=== PATIENT | female | born 1970 | race Caucasian/White ===

== ENCOUNTER 2017-01-06 03:53 | Emergency (ER) | payer OTHER ==
--- NOTE | 2017-01-06 07:18 | DIAGNOSTIC IMAGING REPORT ---
PROCEDURE: ABDOMEN/PELVIS WITH CONTRAST CLINICAL INDICATION: ABDOMINAL PAIN TECHNIQUE: 125 ml of Isovue 300 were injected intravenously and axial images were obtained of the abdomen and pelvis with sagittal and coronal reformations. COMPARISON: 05/26/2016 FINDINGS: ABDOMEN: Clear lung bases. Normal sized heart. No hiatal hernia. Surgically absent gallbladder. The liver, adrenal glands, kidneys, pancreas and spleen are normal. The abdominal aorta is normal in its course and caliber. Mild calcified and noncalcified atherosclerosis. There are no suspicious calcifications, retroperitoneal adenopathy or masses. The stomach, upper bowel loops, and mesentery are normal. Intact anterior abdominal wall. No free fluid or inflammation. PELVIS: Surgically absent uterus. There is a peripherally hyperemic 1.8 cm cystic structure in the left adnexa. The right ovary was not identified. There is a small amount of fluid in the pelvis. The appendix was not identified but no right lower quadrant inflammation. The pelvic small bowel loops are normal. Normal amount of stool in the colon and rectum. The uterus, ovaries, urinary bladder, and pelvic vessels are normal. No adenopathy, free fluid, or pelvic mass. Degenerative facet disease on the right at the L5-S1 level. IMPRESSION: 1. Findings suggest ruptured left ovarian corpus luteum. 2. Post cholecystectomy and hysterectomy. 3. Nonvisualization of the appendix but no evidence of acute appendicitis. 4. Findings called to the emergency room. All CT scans at this facility use dose modulation, iterative reconstruction, and/or weight-based dosing when appropriate to reduce radiation dose to as low as reasonably achievable.
--- NOTE | 2017-01-06 09:17 | ED ORDER SUMMARY ---
..... Patient: TAYA SMITH OrderSheet [facility] VisitID: [id number] [address] [place] [address] 46y, F Registration Date/Time: 01/06/2017 ORDER SHEET Weight: 52.1 kg (stated) Allergies: No Known Drug Allergy GENERAL ORDERS: UA-Culture if indicated Urgent (04:01 01/06/2017 JQuivey R.N. per protocol) (Ack 4:05 ALawrence ER Tech1) (4:26 ALawrence ER Tech1) CBC w Diff Urgent (04:01 01/06/2017 JQuivey R.N. per protocol) (Ack 4:05 ALawrence ER Tech1) (4:26 ALawrence ER Tech1) CMP Urgent (04:01/06/2017 JQuivey R.N. per protocol) (Ack 4:05 ALawrence ER Tech1) (4:26 ALawrence ER Tech1) Amylase Urgent (04:01 01/06/2017 JQuivey R.N. per protocol) (Ack 4:05 ALawrence ER Tech1) (4:26 ALawrence ER Tech1) Lipase Urgent (04:01 01/06/2017 JQuivey R.N. per protocol) (Ack 4:05 ALawrence ER Tech1) (4:26 ALawrence ER Tech1) CT Abd/Pel w Cont (No) (see chart) Urgent (06:16 01/06/2017 Krish ROBERTSON) (Ack 6:27 ALawrence ER Tech1) (6:45 RCollier R.N.) MEDICATION ORDERS: IV FLUIDS: IV Saline Lock (04:01 01/06/2017 JQuivey R.N. per protocol) (Ack 4:05 RCollier R.N.) (5:00 JQuivey R.N.) IV NS : initial bolus none -, then 500 mL/hr for 2h (NOW); Urgent (05:18 01/06/2017 Krish ROBERTSON) (Ack 5:19 JQuivey R.N.) (5:25 JQuivey R.N.) Dilaudid IV 0.5 mg (NOW) (05:19 01/06/2017 Krish ROBERTSON) (Ack 5:25 JQuivey R.N.) (5:30 JQuivey R.N.) Zofran IV 4 mg (NOW) (05:19 01/06/2017 Krish ROBERTSON) (Ack 5:25 JQuivey R.N.) (5:29 JQuivey R.N.) Dilaudid IV 0.5 mg (HIGH ALERT MEDICATION, NOW) (08:34 01/06/2017 Logan Boo. verbal order read back to Krish ROBERTSON) (8:35 Logan CastroN.) ORDER SHEET NOTES: [Electronically signed by Phani Willis R.N. (09:31 01/06/2017)] [Electronically signed by Ethan Quintero MD (10:08 01/08/2017)] [Electronically locked/signed by Phani Willis R.N. (09:01/06/2017)]
--- NOTE | 2017-01-06 09:17 | ED ORDER SUMMARY ---
..... Patient: TAYA SMITH OrderSheet [facility] VisitID: [id number] [address] [place] [address] 46y, F Registration Date/Time: 01/06/2017 ORDER SHEET Weight: 52.1 kg (stated) Allergies: No Known Drug Allergy GENERAL ORDERS: UA-Culture if indicated Urgent (04:01 01/06/2017 JQuivey R.N. per protocol) (Ack 4:05 ALawrence ER Tech1) (4:26 ALawrence ER Tech1) CBC w Diff Urgent (04:01 01/06/2017 JQuivey R.N. per protocol) (Ack 4:05 ALawrence ER Tech1) (4:26 ALawrence ER Tech1) CMP Urgent (04:01/06/2017 JQuivey R.N. per protocol) (Ack 4:05 ALawrence ER Tech1) (4:26 ALawrence ER Tech1) Amylase Urgent (04:01 01/06/2017 JQuivey R.N. per protocol) (Ack 4:05 ALawrence ER Tech1) (4:26 ALawrence ER Tech1) Lipase Urgent (04:01 01/06/2017 JQuivey R.N. per protocol) (Ack 4:05 ALawrence ER Tech1) (4:26 ALawrence ER Tech1) CT Abd/Pel w Cont (No) (see chart) Urgent (06:16 01/06/2017 Krish ROBERTSON) (Ack 6:27 ALawrence ER Tech1) (6:45 RCollier R.N.) MEDICATION ORDERS: IV FLUIDS: IV Saline Lock (04:01 01/06/2017 JQuivey R.N. per protocol) (Ack 4:05 RCollier R.N.) (5:00 JQuivey R.N.) IV NS : initial bolus none -, then 500 mL/hr for 2h (NOW); Urgent (05:18 01/06/2017 Krish ROBERTSON) (Ack 5:19 JQuivey R.N.) (5:25 JQuivey R.N.) Dilaudid IV 0.5 mg (NOW) (05:19 01/06/2017 Krish ROBERTSON) (Ack 5:25 JQuivey R.N.) (5:30 JQuivey R.N.) Zofran IV 4 mg (NOW) (05:19 01/06/2017 Krish ROBERTSON) (Ack 5:25 JQuivey R.N.) (5:29 JQuivey R.N.) Dilaudid IV 0.5 mg (HIGH ALERT MEDICATION, NOW) (08:34 01/06/2017 Logan Boo. verbal order read back to Krish ROBERTSON) (8:35 Logan CastroN.) ORDER SHEET NOTES: [Electronically signed by Phani Willis R.N. (09:31 01/06/2017)] [Electronically signed by Ethan Quintero MD (10:08 01/08/2017)] [Electronically locked/signed by Phani Willis R.N. (09:01/06/2017)]
--- NOTE | 2017-01-06 09:17 | ED CLINICAL REPORT ---
Clinical Report - Physicians/Mid Levels [facility] [address] [place] [address] 01/06/2017 3:53 Patient: TAYA SMITH Arrived- By private vehicle. Historian- patient. HISTORY OF PRESENT ILLNESS Chief Complaint: ABDOMINAL PAIN. At its maximum, severity described as 9 / 10. When seen in the E.D., severity described as 8 / 10. Modifying factors- worsened by walking. Relieved by upright position. This started 0300 and is still present. It was abrupt in onset. It is described as "pain" and it is described as located in the right lower quadrant and left lower quadrant and in the lower abdomen and radiating to the low back. The patient has had nausea. No vomiting or diarrhea. (She has also noted a day or two of blood on formed stools.). Similar symptoms previously: None. Recent medical care: Not recently seen/assessed. REVIEW OF SYSTEMS Last normal menstrual period- 2007. The patient has had a hysterectomy. No difficulty with urination, pain with urination, urinary frequency or sore throat or throat. No blurred vision, difficulty breathing, cough, joint pain or skin rash. No chills, fever, eye irritation or ear pain. Last bowel movement- 3 bms yesterday with blood on a formed stool. The patient has had bloody stools and back pain. PAST HISTORY PROBLEMS: COPD - Chronic Obstructive Pulmonary Disease. Bronchospasm. Bronchitis. Pyelonephritis. Depression. Hyperventilation. --04:01 Judith Marcano RRose. ADDITIONAL SURGERIES: Cholecystectomy. Dilatation & Curettage. Hysterectomy. Knee Surgery. Oophorectomy. ADDITIONAL NOTES The nursing notes have been reviewed. PHYSICAL EXAM Vital Signs: 01/06/2017 09:26 BP: 132/72. HR: 80. RR: 14. O2 saturation: 100%. Temp: 98.2 F. 01/06/2017 08:34 BP: 116/80. HR: 80. RR: 18. O2 saturation: 100%. 01/06/2017 07:05 BP: 120/62. HR: 66. RR: 14. O2 saturation: 100%. Temp: 98.1 F. 01/06/2017 05:47 BP: 126/59. HR: 64. RR: 15. O2 saturation: 95%. 01/06/2017 03:57 BP: 151/79. HR: 81. RR: 17. O2 saturation: 95%. Temp: 98 F. Pain level now: 7/10. Appearance: Alert. Patient in moderate distress. (Walks in with a painful forward leaning gait.). Eyes: Eyes normal inspection. ENT: Pharynx normal. Neck: Normal inspection. CVS: Heart sounds normal. Respiratory: No respiratory distress. Breath sounds normal. Chest nontender. Abdomen: Moderate tenderness in the right lower quadrant. No guarding. Mild additional tenderness in the suprapubic area and left lower quadrant (to moderate). Bowel sounds normal. No guarding. Back: Normal inspection. No CVA tenderness. Skin: Skin warm. Normal skin color. Extremities: No lower extremity edema. LABS, X-RAYS, AND EKG Abdominal CT: Ruptrue of L ovarian follicle. PROCEDURE: ABDOMEN/PELVIS WITH CONTRAST CLINICAL INDICATION: ABDOMINAL PAIN TECHNIQUE: 125 ml of Isovue 300 were injected intravenously and axial images were obtained of the abdomen and pelvis with sagittal and coronal reformations. COMPARISON: 05/26/2016 FINDINGS: ABDOMEN: Clear lung bases. Normal sized heart. No hiatal hernia. Surgically absent gallbladder. The liver, adrenal glands, kidneys, pancreas and spleen are normal. The abdominal aorta is normal in its course and caliber. Mild calcified and noncalcified atherosclerosis. There are no suspicious calcifications, retroperitoneal adenopathy or masses. The stomach, upper bowel loops, and mesentery are normal. Intact anterior abdominal wall. No free fluid or inflammation. PELVIS: Surgically absent uterus. There is a peripherally hyperemic 1.8 cm cystic structure in the left adnexa. The right ovary was not identified. There is a small amount of fluid in the pelvis. The appendix was not identified but no right lower quadrant inflammation. The pelvic small bowel loops are normal. Normal amount of stool in the colon and rectum. The uterus, ovaries, urinary bladder, and pelvic vessels are normal. No adenopathy, free fluid, or pelvic mass. Degenerative facet disease on the right at the L5-S1 level. IMPRESSION: 1. Findings suggest ruptured left ovarian corpus luteum. 2. Post cholecystectomy and hysterectomy. 3. Nonvisualization of the appendix but no evidence of acute appendicitis. 4. Findings called to the emergency room. All CT scans at this facility use dose modulation, iterative reconstruction, and/or weight-based dosing when appropriate to reduce radiation dose to as low as reasonably achievable. Electronically Final signed by:Nidia Luo MD 01/06/2017 7:18:50 AM. Laboratory Tests: UA-Culture if indicated: (KATELYNN: 01/06/2017 03:57) ( [facility] [place]/06/2017 04:11) Final results Test Result Flag Units (Reference) URINE COLOR YELLOW URINE APPEARANCE CLEAR URINE GLUCOSE NEGATIVE (NEGATIVE) URINE BILIRUBIN NEGATIVE (NEGATIVE) URINE KETONE NEGATIVE (NEGATIVE) URINE SPECIFIC GRAVITY 1.015 (1.010-1.030) URINE PH 6.0 (5.0-8.0) URINE PROTEIN NEGATIVE (NEGATIVE) URINE UROBILINOGEN 0.2 EU/dL (0.2-1.0) URINE NITRITE NEGATIVE (NEGATIVE) URINE BLOOD TRACE-LYSED (NEGATIVE) URINE LEUK ESTERASE NEGATIVE (NEGATIVE) URINE RBC 0-1 rbc/hpf (0-1) URINE WBC 0-1 wbc/hpf (0-1) URINE EPITHELIAL CELLS 0-1 EPI/hpf (0-5) URINE BACTERIA NONE SEEN (NONE SEEN) URINE COMMENT CULT NOT INDICATED URINE CULTURES ARE SET-UP BASED ON THE FOLLOWING CRITERIA:POSITIVE NITRITEPOSITIVE LEUKOCYTE ESTERASEGREATER THAN 10 WHITE BLOOD CELLSMODERATE (2+) OR GREATER BACTERIA CBC w Diff: (KATELYNN: 01/06/2017 04:02) ( [facility] [place] 01/06/2017 04:14) Final results Test Result Flag Units (Reference) WHITE BLOOD COUNT 6.3 K/uL (4.5-11.5) RED BLOOD COUNT 4.59 M/uL (4.00-5.20) HEMOGLOBIN 14.3 gm/dL (12.0-16.0) HEMATOCRIT 42.3 % (36.0-46.0) MEAN CELL VOLUME 92 fL (80-100) MEAN CORPUSCULAR HGB 31 pg (26-34) MEAN CORPUSCULAR HGB CONC 34 g/dL (31-37) RED CELL DISTRIBUTION WIDTH 13.3 % (11.6-14.8) PLATELET COUNT 274 K/uL (150-400) NEUTROPHIL % 56.4 % (50-75) LYMPH % 31.9 % (25-40) MONO % 9.1 % (3-14) EOSINOPHIL % 2.0 % (0-4) BASOPHIL % 0.6 % (0-2) CMP: (KATELYNN: 01/06/2017 04:02) ( MsgRcvd 01/06/2017 04:25) Final results Test Result Flag Units (Reference) GLUCOSE 94 mg/dL (70-110) BUN 19 H mg/dL (7-18) CREATININE 0.7 mg/dL (0.6-1.3) Estimated GFR >60 mL/min Estimated GFR- >60 mL/min Note: Persistent reduction over 3 months in eGFR<60 mL/min/1.73 m2 defines CKD. Patients with eGFR values>=60 mL/min/1.73 m2 may also have CKD if evidence ofpersistent proteinuria. Additional information may be foundat www.kidney.org. SODIUM 140 mmol/L (136-145) POTASSIUM 4.3 mmol/L (3.5-5.1) CHLORIDE 106 mmol/L (98-107) CARBON DIOXIDE 23 mmol/L (21-32) CALCIUM 8.8 mg/dL (8.5-10.1) TOTAL PROTEIN 6.7 g/dL (6.4-8.2) ALBUMIN 3.6 g/dL (3.3-5.0) BILIRUBIN, TOTAL 0.3 mg/dL (0.0-1.0) ALKALINE PHOSPHATASE 55 U/L (46-116) AST (SGOT) 14 L U/L (15-37) ALT (SGPT) 19 U/L (12-78) LIPASE 207 U/L (73-393) AMYLASE 100 U/L (25-115) . PROGRESS AND PROCEDURES Course of Care: Ms Curran has a clear cut reason for her acute abdominal pain...rupture of a L ovarian cyst. I note that her tenderness is worse on the R side but without peritoneal signs. The appendix is not seen but not inflammatory signs. Her hematochezia is unrelated and will need to be worked up separately. Disposition: Discharged. Condition: stable. CLINICAL IMPRESSION Acute abdominal pain. Single ruptured ovarian cyst. HEMATOCHEZIA. INSTRUCTIONS Do not work for two days. (IMMEDIATE RECHECK IN ED UNLESS BETTER IN 12 HOURS YOU NEED YOUR PCP TO REFER YOU TO SOMEONE TO DO A COLONOSCOPY). Prescription Medications: Percocet 5 mg/325 mg: take 1-2 tablets orally every 4 hours as needed for pain. Dispense twelve (12). No refill. Follow-up: Follow up with your doctor in five days. Reason for referral: REFERRAL FOR COLONOSCOPY. Understanding of the discharge instructions verbalized by patient. (Electronically signed by Ethan Quintero MD 01/08/2017 10:08)
--- NOTE | 2017-01-06 09:17 | ED NURSING NOTES ---
Clinical Report - Nurses [facility] [address] [place] [address] 01/06/2017 3:53 Patient: TAYA SMITH TRIAGE Triage time 03:57. Acuity: LEVEL 3. Chief Complaint: ABDOMINAL PAIN and NAUSEA and BLOOD IN STOOLS (low back pain). Alert. --04:03 Judith Marcano R.N. 03:57 01/06/17. BP: 151/79. HR: 81. RR: 17. O2 saturation: 95% on room air. Temp: 98 F (oral). Pain level now: 01/18. --04:03 Judith Marcano R.N. Weight: 52.1 kg stated. Height/Length: 59 inches Per Patient. BMI: 23.2. --04:02 Judith Marcano R.N. Medications Multivitamins Oral. --04:00 Judith Marcano R.N. Allergies No Known Drug Allergy. --04:00 Judith Marcano R.N. History Arrived by private vehicle. Historian: patient. Accompanied by (boyfriend). Primary physician (Héctor). This started last night. She has had bloody stools (last night). Treatment SPRAY DRIER: None. PAST MEDICAL HX: Immunizations: up-to-date. SOCIAL HX: Heavy tobacco smoker (cigarette)- less than 1 pack per day. Occasional alcohol use. History of heavy drug use: marijuana. --04:03 Judith Marcano R.N. PROBLEMS: COPD - Chronic Obstructive Pulmonary Disease. Bronchospasm. Bronchitis. Pyelonephritis. Depression. Hyperventilation. --04:01 Judith Marcano R.N. ADDITIONAL SURGERIES: Cholecystectomy. Dilatation & Curettage. Hysterectomy. Knee Surgery. Oophorectomy. --04:01 Judith Marcano R.N. Interventions ID band on patient. To treatment room. --04:03 Judith Marcano R.N. PHYSICAL ASSESSMENT Ambulatory to room. Patient gowned. GENERAL / NEURO / PSYCH: Alert. Oriented X 4. Appears in pain. HEENT: Mucous membranes are pink. RESPIRATORY: Respirations not labored. CVS: Capillary refill less than 2 seconds. SKIN: Skin is warm and dry. --04:04 Judith Marcano R.N. NURSING PROGRESS NOTES Head of bed elevated. Two patient identifiers checked. Call light placed in reach. Side rails up x 1. Bed placed in lowest position. Brakes of bed on. --04:04 Judith Marcano R.N. Patient ready for evaluation- chart flagged. --04:04 Judith Marcano R.N. 04:04 01/06/2017 Site #1 started via IV in the right wrist with an 20g angiocath, with aseptic technique and good blood return; one attempt. Blood drawn: rainbow set. Labeled in the presence of the patient and sent to the lab. Saline lock flushed with 10 mL saline (Started by Jeb Pisano RN). --04:04 Judith Marcano R.N. Patient ID band checked for patient name and birthdate: patient confirmed. Instructions provided to collect clean catch urine and patient verbalized understanding. Clean catch urine collected with return of yellow-colored clear urine; sample sent to lab. Specimen labeled in the presence of the patient. --04:07 Judith Marcano R.N. 05:23 01/06/2017 Started bag #1 1000 mL IV Fluids IV NS (Saline); at 500 mL/hr over 2 hour(s) via site #1 via IV pump. IV patency established. IV site checked: no pain, redness, or swelling. IV flushed thoroughly pre- and post-medication administration. --05:25 Jeb Bryson R.N. 05:25 01/06/2017 Zofran (Ondansetron HCl) IVP 4 mg given over 2 minute(s) via site #1. Allergies verified and confirmed 5 rights. IV patency established. IV site checked: no pain, redness, or swelling. IV flushed thoroughly pre- and post-medication administration. --05:29 Jeb Bryson R.N. 05:27 01/06/2017 Dilaudid (HYDROmorphone HCl PF) IVP 0.5 mg given. via site #1. Allergies verified, confirmed 5 rights and sedative warning given to the patient and patient's cartridge filler. IV patency established. IV site checked: no pain, redness, or swelling. IV flushed thoroughly pre- and post-medication administration. --05:30 Jeb Bryson R.N. 05:47 01/06/17. BP: 126/59. HR: 64. RR: 15. O2 saturation: 95% on room air. --05:48 Judith Marcano R.N. The patient is calm and resting quietly. Patient informed about plan of care. --06:07 Judith Marcano R.N. 06:31 01/06/2017 Hold IV Fluids IV NS: due to diagnostic studies. --06:31 Judith Marcano R.N. Patient transported to [place] by stretcher with tech. (06:31). --06:31 Judith Marcano R.N. 06:46 01/06/2017 Restart IV Fluids IV NS: bag #1 500 mL/hr via IV pump. IV patency established. IV site checked: no pain, redness, or swelling. IV flushed thoroughly. --06:46 Judith Marcano R.N. Patient returned from CT by stretcher with tech. (06:45). --06:46 Judith Marcano R.N. 07:05 01/06/17. Care transferred and report received. --07:05 Phani Willis R.N. 07:05 01/06/17. Patient and family informed about reason for wait and about plan of care. --07:05 Phani Willis R.N. 07:05 01/06/17. BP: 120/62. HR: 66. RR: 14. O2 saturation: 100% on room air. Temp: 98.1 F (oral). --07:06 Phani Willis R.N. 07:06 01/06/17. --07:06 Phani Willis R.N. 08:34 01/06/17. BP: 116/80. HR: 80. RR: 18. O2 saturation: 100% on room air. --08:34 Phani Willis R.N. 08:34 01/06/17. --08:34 Phani Willis R.N. 08:35 01/06/2017 Dilaudid (HYDROmorphone HCl PF) IVP 0.5 mg given over 2 minute(s) via site #1. Allergies verified, confirmed 5 rights and sedative warning given to the patient. IV patency established. IV site checked: no pain, redness, or swelling. IV flushed thoroughly pre- and post-medication administration. IVP given by RN. --08:35 Phani Willis R.N. 09:05 01/06/2017 IV Fluids IV NS Discontinued: bag #1 infused. Total amount infused: 1000 mL. IV patency established. IV site checked: no pain, redness, or swelling. IV flushed thoroughly. --09:30 Phani Willis R.N. DISPOSITION / DISCHARGE 09:01/06/2017 Site #1 removed upon discharge. Catheter intact. --09:27 Phani Willis R.N. 09:01/06/17. Condition at departure: improved. The goals identified in the patient's plan of care were met. No learning barriers present. Discharge instructions provided and reviewed with the patient and spouse. Reviewed warnings. Reviewed medication(s). Treatments reviewed. Patient and spouse verbalized understanding. Written instructions provided in [place]. The patient was discharged by the physician. She was discharged home and accompanied by family. She left the Emergency Department ambulatory and via private vehicle. Family member driving. FALL RISK ASSESSMENT: Fall risk assessment completed. No fall risk identified. --:28 Phani Willis R.N. 09:26 01/06/17. BP: 132/72. HR: 80. RR: 14. O2 saturation: 100% on room air. Temp: 98.2 F (oral). --:28 Phani Willis R.N. 09:01/06/17. Departure time: 09:Jan 06 2017. --: Phani Willis R.N. Locked/Released at 01/06/2017 9:31 by Phani Willis R.N.
--- NOTE | 2017-01-06 09:17 | ED NURSING NOTES ---
Clinical Report - Nurses [facility] [address] [place] [address] 01/06/2017 3:53 Patient: TAYA SMITH TRIAGE Triage time 03:57. Acuity: LEVEL 3. Chief Complaint: ABDOMINAL PAIN and NAUSEA and BLOOD IN STOOLS (low back pain). Alert. --04:03 Judith Marcano R.N. 03:57 01/06/17. BP: 151/79. HR: 81. RR: 17. O2 saturation: 95% on room air. Temp: 98 F (oral). Pain level now: 01/18. --04:03 Judith Marcano R.N. Weight: 52.1 kg stated. Height/Length: 59 inches Per Patient. BMI: 23.2. --04:02 Judith Marcano R.N. Medications Multivitamins Oral. --04:00 Judith Marcano R.N. Allergies No Known Drug Allergy. --04:00 Judith Marcano R.N. History Arrived by private vehicle. Historian: patient. Accompanied by (boyfriend). Primary physician (Héctor). This started last night. She has had bloody stools (last night). Treatment INVENTORY CONTROL SPECIALIST: None. PAST MEDICAL HX: Immunizations: up-to-date. SOCIAL HX: Heavy tobacco smoker (cigarette)- less than 1 pack per day. Occasional alcohol use. History of heavy drug use: marijuana. --04:03 Judith Marcano R.N. PROBLEMS: COPD - Chronic Obstructive Pulmonary Disease. Bronchospasm. Bronchitis. Pyelonephritis. Depression. Hyperventilation. --04:01 Judith Marcano R.N. ADDITIONAL SURGERIES: Cholecystectomy. Dilatation & Curettage. Hysterectomy. Knee Surgery. Oophorectomy. --04:01 Judith Marcano R.N. Interventions ID band on patient. To treatment room. --04:03 Judith Marcano R.N. PHYSICAL ASSESSMENT Ambulatory to room. Patient gowned. GENERAL / NEURO / PSYCH: Alert. Oriented X 4. Appears in pain. HEENT: Mucous membranes are pink. RESPIRATORY: Respirations not labored. CVS: Capillary refill less than 2 seconds. SKIN: Skin is warm and dry. --04:04 Judith Marcano R.N. NURSING PROGRESS NOTES Head of bed elevated. Two patient identifiers checked. Call light placed in reach. Side rails up x 1. Bed placed in lowest position. Brakes of bed on. --04:04 Judith Marcano R.N. Patient ready for evaluation- chart flagged. --04:04 Judith Marcano R.N. 04:04 01/06/2017 Site #1 started via IV in the right wrist with an 20g angiocath, with aseptic technique and good blood return; one attempt. Blood drawn: rainbow set. Labeled in the presence of the patient and sent to the lab. Saline lock flushed with 10 mL saline (Started by Jeb Pisano RN). --04:04 Judith Marcano R.N. Patient ID band checked for patient name and birthdate: patient confirmed. Instructions provided to collect clean catch urine and patient verbalized understanding. Clean catch urine collected with return of yellow-colored clear urine; sample sent to lab. Specimen labeled in the presence of the patient. --04:07 Judith Marcano R.N. 05:23 01/06/2017 Started bag #1 1000 mL IV Fluids IV NS (Saline); at 500 mL/hr over 2 hour(s) via site #1 via IV pump. IV patency established. IV site checked: no pain, redness, or swelling. IV flushed thoroughly pre- and post-medication administration. --05:25 Jeb Bryson R.N. 05:25 01/06/2017 Zofran (Ondansetron HCl) IVP 4 mg given over 2 minute(s) via site #1. Allergies verified and confirmed 5 rights. IV patency established. IV site checked: no pain, redness, or swelling. IV flushed thoroughly pre- and post-medication administration. --05:29 Jeb Bryson R.N. 05:27 01/06/2017 Dilaudid (HYDROmorphone HCl PF) IVP 0.5 mg given. via site #1. Allergies verified, confirmed 5 rights and sedative warning given to the patient and patient's corn cutter operator. IV patency established. IV site checked: no pain, redness, or swelling. IV flushed thoroughly pre- and post-medication administration. --05:30 Jeb Bryson R.N. 05:47 01/06/17. BP: 126/59. HR: 64. RR: 15. O2 saturation: 95% on room air. --05:48 Judith Marcano R.N. The patient is calm and resting quietly. Patient informed about plan of care. --06:07 Judith Marcano R.N. 06:31 01/06/2017 Hold IV Fluids IV NS: due to diagnostic studies. --06:31 Judith Marcano R.N. Patient transported to [place] by stretcher with tech. (06:31). --06:31 Judith Marcano R.N. 06:46 01/06/2017 Restart IV Fluids IV NS: bag #1 500 mL/hr via IV pump. IV patency established. IV site checked: no pain, redness, or swelling. IV flushed thoroughly. --06:46 Judith Marcano R.N. Patient returned from CT by stretcher with tech. (06:45). --06:46 Judith Marcano R.N. 07:05 01/06/17. Care transferred and report received. --07:05 Phani Willis R.N. 07:05 01/06/17. Patient and family informed about reason for wait and about plan of care. --07:05 Phani Willis R.N. 07:05 01/06/17. BP: 120/62. HR: 66. RR: 14. O2 saturation: 100% on room air. Temp: 98.1 F (oral). --07:06 Phani Willis R.N. 07:06 01/06/17. --07:06 Phani Willis R.N. 08:34 01/06/17. BP: 116/80. HR: 80. RR: 18. O2 saturation: 100% on room air. --08:34 Phani Willis R.N. 08:34 01/06/17. --08:34 Phani Willis R.N. 08:35 01/06/2017 Dilaudid (HYDROmorphone HCl PF) IVP 0.5 mg given over 2 minute(s) via site #1. Allergies verified, confirmed 5 rights and sedative warning given to the patient. IV patency established. IV site checked: no pain, redness, or swelling. IV flushed thoroughly pre- and post-medication administration. IVP given by RN. --08:35 Phani Willis R.N. 09:05 01/06/2017 IV Fluids IV NS Discontinued: bag #1 infused. Total amount infused: 1000 mL. IV patency established. IV site checked: no pain, redness, or swelling. IV flushed thoroughly. --09:30 Phani Willis R.N. DISPOSITION / DISCHARGE 09:01/06/2017 Site #1 removed upon discharge. Catheter intact. --09:27 Phani Willis R.N. 09:01/06/17. Condition at departure: improved. The goals identified in the patient's plan of care were met. No learning barriers present. Discharge instructions provided and reviewed with the patient and spouse. Reviewed warnings. Reviewed medication(s). Treatments reviewed. Patient and spouse verbalized understanding. Written instructions provided in Faroese. The patient was discharged by the physician. She was discharged home and accompanied by family. She left the Emergency Department ambulatory and via private vehicle. Family member driving. FALL RISK ASSESSMENT: Fall risk assessment completed. No fall risk identified. --:28 Phani Willis R.N. 09:26 01/06/17. BP: 132/72. HR: 80. RR: 14. O2 saturation: 100% on room air. Temp: 98.2 F (oral). --:28 Phani Willis R.N. 09:01/06/17. Departure time: 09:Jan 06 2017. --: Phani Willis R.N. Locked/Released at 01/06/2017 9:31 by Phani Willis R.N.
--- NOTE | 2017-01-08 10:09 | ED MED RECONCILIATION SUMMARY ---
Patient: TAYA SMITH Medication Reconciliation Report [facility] VisitID: [id number] [address] [place] [address] 46y, F Registration Date/Time: 01/06/2017 Weight: 52.1 kg Height/Length: 59 in. BMI: 23.2 ALLERGIES: No Known Drug Allergy The patient's Home Medications are listed below: THE FOLLOWING MEDICATIONS NEED TO BE RECONCILED: Multivitamins Oral The source(s) of the original Home Medication information: Not obtained. The following Medications were given to the patient in the Emergency Department: IV NS IV Fluids bolus 0, then 500 mL/hr, administered: 01/06/2017 5:23:00 AM Zofran [IVP] IVP 4 mg, administered: 01/06/2017 5:25:00 AM Dilaudid [IVP] IVP 0.5 mg, administered: 01/06/2017 5:27:00 AM Dilaudid [IVP] IVP 0.5 mg, administered: 01/06/2017 8:35:00 AM The following Medications were prescribed to the patient: Percocet 5 mg/325 mg: take 1-2 tablets orally every 4 hours as needed for pain. Dispense twelve (12). No refill. -- Ethan Quintero MD
--- NOTE | 2017-01-08 10:09 | ED DISCHARGE INSTRUCTIONS ---
Patient: TAYA SMITH General Instructions [facility] VisitID: [id number] [address] [place] [address] 46y, F Registration Date/Time: 01/06/2017 Acute abdominal pain. Single ruptured ovarian cyst. HEMATOCHEZIA. INSTRUCTIONS Do not work for two days. (IMMEDIATE RECHECK IN ED UNLESS BETTER IN 12 HOURS YOU NEED YOUR PCP TO REFER YOU TO SOMEONE TO DO A COLONOSCOPY). Prescription Medications: Percocet 5 mg/325 mg: take 1-2 tablets orally every 4 hours as needed for pain. Dispense twelve (12). No refill. Follow-up: Follow up with your doctor in five days. Reason for referral: REFERRAL FOR COLONOSCOPY. Understanding of the discharge instructions verbalized by patient. ADDITIONAL INFORMATION Ovarian Cyst The ovary is a small organ located on each side of the uterus. During each menstrual cycle a tiny egg sac forms in the ovary. If the egg is released but does not occur, this sac usually dissolves. Sometimes, the sac may fill with fluid. It then enlarges into a painful cyst. Usually the cyst will rupture or shrink on its own. In either case, the pain gradually goes away over the next 1-3 days. If the cyst does not shrink or rupture, it may cause continued pain. Home Care: Rest in bed and avoid heavy exertion until you are feeling better. Heat to the lower abdomen usually helps (heating pad or hot packs -- a small towel soaked in hot water). You may use acetaminophen (Tylenol) or ibuprofen (Motrin, Advil) to control pain, unless another pain medicine was prescribed. [NOTE: If you have chronic liver or kidney disease or ever had a stomach ulcer or GI bleeding, talk with your doctor before using these medicines.] Follow Up: See your doctor within the next 2-3 days if your pain doesnt improve. Otherwise, follow up with your doctor after your next period or as directed by our staff. Get Prompt Medical Attention if any of the following occur: Pain worsens or fails to respond to the above measures Fever of 100.4F (38C) or higher, or as directed by your healthcare provider Heavy vaginal bleeding (soaking one pad an hour for three hours) You feel weak or dizzy Fainting Passage of a pink or hutchinson tissue with menstrual bleeding Oxycodone Hydrochloride, Acetaminophen Oral tablet What is this medicine? ACETAMINOPHEN; OXYCODONE (a set a SIMRAN kim fen; ox i KOE done) is a pain reliever. It is used to treat mild to moderate pain. How should I use this medicine? Take this medicine by mouth with a full glass of water. Follow the directions on the prescription label. Take your medicine at regular intervals. Do not take your medicine more often than directed. Talk to your microsoft infrastructure consultant regarding the use of this medicine in children. Special care may be needed. Patients over 65 years old may have a stronger reaction and need a smaller dose. What side effects may I notice from receiving this medicine? Side effects that you should report to your doctor or health care transitions nurse as soon as possible: allergic reactions like skin rash, itching or hives, swelling of the face, lips, or tongue breathing difficulties, wheezing confusion light headedness or fainting spells severe stomach pain yellowing of the skin or the whites of the eyes Side effects that usually do not require medical attention (report to your doctor or health care transitions nurse if they continue or are bothersome): dizziness drowsiness nausea vomiting What may interact with this medicine? alcohol antihistamines barbiturates like amobarbital, butalbital, butabarbital, methohexital, pentobarbital, phenobarbital, thiopental, and secobarbital benztropine drugs for bladder problems like solifenacin, trospium, oxybutynin, tolterodine, hyoscyamine, and methscopolamine drugs for breathing problems like ipratropium and tiotropium drugs for certain stomach or intestine problems like propantheline, homatropine methylbromide, glycopyrrolate, atropine, belladonna, and dicyclomine general anesthetics like etomidate, ketamine, nitrous oxide, propofol, desflurane, enflurane, halothane, isoflurane, and sevoflurane medicines for depression, anxiety, or psychotic disturbances medicines for sleep muscle relaxants naltrexone narcotic medicines (opiates) for pain phenothiazines like perphenazine, thioridazine, chlorpromazine, mesoridazine, fluphenazine, prochlorperazine, promazine, and trifluoperazine scopolamine tramadol trihexyphenidyl What if I miss a dose? If you miss a dose, take it as soon as you can. If it is almost time for your next dose, take only that dose. Do not take double or extra doses. Where should I keep my medicine? Keep out of the reach of children. This medicine can be abused. Keep your medicine in a safe place to protect it from theft. Do not share this medicine with anyone. Selling or giving away this medicine is dangerous and against the law. Store at room temperature between 20 and 25 degrees C (68 and 77 degrees F). Keep container tightly closed. Protect from light. This medicine may cause accidental overdose and if it is taken by other adults, children, or pets. Flush any unused medicine down the toilet to reduce the chance of harm. Do not use the medicine after the expiration date. What should I tell my health care provider before I take this medicine? They need to know if you have any of these conditions: brain tumor Crohn's disease, inflammatory bowel disease, or ulcerative colitis drink more than 3 alcohol containing drinks per day drug abuse or addiction head injury heart or circulation problems kidney disease or problems going to the bathroom liver disease lung disease, asthma, or breathing problems an unusual or allergic reaction to acetaminophen, oxycodone, other opioid analgesics, other medicines, foods, dyes, or preservatives or trying to get breast-feeding What should I watch for while using this medicine? Tell your doctor or health care transitions nurse if your pain does not go away, if it gets worse, or if you have new or a different type of pain. You may develop tolerance to the medicine. Tolerance means that you will need a higher dose of the medication for pain relief. Tolerance is normal and is expected if you take this medicine for a long time. Do not suddenly stop taking your medicine because you may develop a severe reaction. Your body becomes used to the medicine. This does NOT mean you are addicted. Addiction is a behavior related to getting and using a drug for a non-medical reason. If you have pain, you have a medical reason to take pain medicine. Your doctor will tell you how much medicine to take. If your doctor wants you to stop the medicine, the dose will be slowly lowered over time to avoid any side effects. You may get drowsy or dizzy. Do not drive, use machinery, or do anything that needs mental alertness until you know how this medicine affects you. Do not stand or sit up quickly, especially if you are an older patient. This reduces the risk of dizzy or fainting spells. Alcohol may interfere with the effect of this medicine. Avoid alcoholic drinks. There are different types of narcotic medicines (opiates) for pain. If you take more than one type at the same time, you may have more side effects. Give your health care provider a list of all medicines you use. Your doctor will tell you how much medicine to take. Do not take more medicine than directed. Call emergency for help if you have problems breathing. The medicine will cause constipation. Try to have a bowel movement at least every 2 to 3 days. If you do not have a bowel movement for 3 days, call your doctor or health care transitions nurse. Do not take Tylenol (acetaminophen) or medicines that have acetaminophen with this medicine. Too much acetaminophen can be very dangerous. Many nonprescription medicines contain acetaminophen. Always read the labels carefully to avoid taking more acetaminophen. You have been given the following additional information: Ovarian Cyst Oxycodone Hydrochloride, Acetaminophen Oral tablet Do not work for two days. (Electronically signed by Ethan Quintero MD 01/08/2017 10:08)
--- NOTE | 2017-01-08 10:09 | ED MAR SUMMARY ---
..... Medication Administration Record [facility] [address] [place] [address] Patient: TAYA SMITH Visit ID: [id number] 46y, F Weight: 52.1 kg Height/Length: 59 in BMI: 23.2 ALLERGIES: No Known Drug Allergy Start 05:23 01/06/2017 Jeb Bryson R.N., Stop 09:05 01/06/2017 Phani Willis R.N. Medication Administered: IV NS (SALINE), Dose: IV Fluids over 2 hour(s), Rate: 500 mL/hr, Dispensed: 1000 mL bag, Site: #1 right wrist. Medication Ordered: IV NS : initial bolus none -, then 500 mL/hr for 2h (NOW); Urgent. Given 05:25 01/06/2017 Jeb Bryson R.N. Medication Administered: ZOFRAN [IVP] (ONDANSETRON HCL), Dose: 4 mg IVP over 2 minute(s), Site: #1 right wrist. Medication Ordered: Zofran IV 4 mg (NOW). Given 05:27 01/06/2017 Jeb Bryson R.N. Medication Administered: DILAUDID [IVP] (HYDROMORPHONE HCL PF), Dose: 0.5 mg IVP, Site: #1 right wrist. Medication Ordered: Dilaudid IV 0.5 mg (NOW). Given 08:35 01/06/2017 Phani Willis R.N. Medication Administered: DILAUDID [IVP] (HYDROMORPHONE HCL PF), Dose: 0.5 mg IVP over 2 minute(s), Site: #1 right wrist. Medication Ordered: Dilaudid IV 0.5 mg (HIGH ALERT MEDICATION, NOW).
--- NOTE | 2017-01-08 10:09 | ED MED RECONCILIATION SUMMARY ---
Patient: TAYA SMITH Medication Reconciliation Report [facility] VisitID: [id number] [address] [place] [address] 46y, F Registration Date/Time: 01/06/2017 Weight: 52.1 kg Height/Length: 59 in. BMI: 23.2 ALLERGIES: No Known Drug Allergy The patient's Home Medications are listed below: THE FOLLOWING MEDICATIONS NEED TO BE RECONCILED: Multivitamins Oral The source(s) of the original Home Medication information: Not obtained. The following Medications were given to the patient in the Emergency Department: IV NS IV Fluids bolus 0, then 500 mL/hr, administered: 01/06/2017 5:23:00 AM Zofran [IVP] IVP 4 mg, administered: 01/06/2017 5:25:00 AM Dilaudid [IVP] IVP 0.5 mg, administered: 01/06/2017 5:27:00 AM Dilaudid [IVP] IVP 0.5 mg, administered: 01/06/2017 8:35:00 AM The following Medications were prescribed to the patient: Percocet 5 mg/325 mg: take 1-2 tablets orally every 4 hours as needed for pain. Dispense twelve (12). No refill. -- Ethan Quintero MD
--- NOTE | 2017-01-08 10:09 | ED MAR SUMMARY ---
..... Medication Administration Record [facility] [address] [place] [address] Patient: TAYA SMITH Visit ID: [id number] 46y, F Weight: 52.1 kg Height/Length: 59 in BMI: 23.2 ALLERGIES: No Known Drug Allergy Start 05:23 01/06/2017 Jeb Bryson R.N., Stop 09:05 01/06/2017 Phani Willis R.N. Medication Administered: IV NS (SALINE), Dose: IV Fluids over 2 hour(s), Rate: 500 mL/hr, Dispensed: 1000 mL bag, Site: #1 right wrist. Medication Ordered: IV NS : initial bolus none -, then 500 mL/hr for 2h (NOW); Urgent. Given 05:25 01/06/2017 Jeb Bryson R.N. Medication Administered: ZOFRAN [IVP] (ONDANSETRON HCL), Dose: 4 mg IVP over 2 minute(s), Site: #1 right wrist. Medication Ordered: Zofran IV 4 mg (NOW). Given 05:27 01/06/2017 Jeb Bryson R.N. Medication Administered: DILAUDID [IVP] (HYDROMORPHONE HCL PF), Dose: 0.5 mg IVP, Site: #1 right wrist. Medication Ordered: Dilaudid IV 0.5 mg (NOW). Given 08:35 01/06/2017 Phani Willis R.N. Medication Administered: DILAUDID [IVP] (HYDROMORPHONE HCL PF), Dose: 0.5 mg IVP over 2 minute(s), Site: #1 right wrist. Medication Ordered: Dilaudid IV 0.5 mg (HIGH ALERT MEDICATION, NOW).
--- NOTE | 2017-01-08 10:09 | ED DISCHARGE INSTRUCTIONS ---
Patient: TAYA SMITH General Instructions [facility] VisitID: [id number] [address] [place] [address] 46y, F Registration Date/Time: 01/06/2017 Acute abdominal pain. Single ruptured ovarian cyst. HEMATOCHEZIA. INSTRUCTIONS Do not work for two days. (IMMEDIATE RECHECK IN ED UNLESS BETTER IN 12 HOURS YOU NEED YOUR PCP TO REFER YOU TO SOMEONE TO DO A COLONOSCOPY). Prescription Medications: Percocet 5 mg/325 mg: take 1-2 tablets orally every 4 hours as needed for pain. Dispense twelve (12). No refill. Follow-up: Follow up with your doctor in five days. Reason for referral: REFERRAL FOR COLONOSCOPY. Understanding of the discharge instructions verbalized by patient. ADDITIONAL INFORMATION Ovarian Cyst The ovary is a small organ located on each side of the uterus. During each menstrual cycle a tiny egg sac forms in the ovary. If the egg is released but does not occur, this sac usually dissolves. Sometimes, the sac may fill with fluid. It then enlarges into a painful cyst. Usually the cyst will rupture or shrink on its own. In either case, the pain gradually goes away over the next 1-3 days. If the cyst does not shrink or rupture, it may cause continued pain. Home Care: Rest in bed and avoid heavy exertion until you are feeling better. Heat to the lower abdomen usually helps (heating pad or hot packs -- a small towel soaked in hot water). You may use acetaminophen (Tylenol) or ibuprofen (Motrin, Advil) to control pain, unless another pain medicine was prescribed. [NOTE: If you have chronic liver or kidney disease or ever had a stomach ulcer or GI bleeding, talk with your doctor before using these medicines.] Follow Up: See your doctor within the next 2-3 days if your pain doesnt improve. Otherwise, follow up with your doctor after your next period or as directed by our staff. Get Prompt Medical Attention if any of the following occur: Pain worsens or fails to respond to the above measures Fever of 100.4F (38C) or higher, or as directed by your healthcare provider Heavy vaginal bleeding (soaking one pad an hour for three hours) You feel weak or dizzy Fainting Passage of a pink or hutchinson tissue with menstrual bleeding Oxycodone Hydrochloride, Acetaminophen Oral tablet What is this medicine? ACETAMINOPHEN; OXYCODONE (a set a SIMRAN kim fen; ox i KOE done) is a pain reliever. It is used to treat mild to moderate pain. How should I use this medicine? Take this medicine by mouth with a full glass of water. Follow the directions on the prescription label. Take your medicine at regular intervals. Do not take your medicine more often than directed. Talk to your echo vasc tech regarding the use of this medicine in children. Special care may be needed. Patients over 65 years old may have a stronger reaction and need a smaller dose. What side effects may I notice from receiving this medicine? Side effects that you should report to your doctor or health manager medicare marketing as soon as possible: allergic reactions like skin rash, itching or hives, swelling of the face, lips, or tongue breathing difficulties, wheezing confusion light headedness or fainting spells severe stomach pain yellowing of the skin or the whites of the eyes Side effects that usually do not require medical attention (report to your doctor or health manager medicare marketing if they continue or are bothersome): dizziness drowsiness nausea vomiting What may interact with this medicine? alcohol antihistamines barbiturates like amobarbital, butalbital, butabarbital, methohexital, pentobarbital, phenobarbital, thiopental, and secobarbital benztropine drugs for bladder problems like solifenacin, trospium, oxybutynin, tolterodine, hyoscyamine, and methscopolamine drugs for breathing problems like ipratropium and tiotropium drugs for certain stomach or intestine problems like propantheline, homatropine methylbromide, glycopyrrolate, atropine, belladonna, and dicyclomine general anesthetics like etomidate, ketamine, nitrous oxide, propofol, desflurane, enflurane, halothane, isoflurane, and sevoflurane medicines for depression, anxiety, or psychotic disturbances medicines for sleep muscle relaxants naltrexone narcotic medicines (opiates) for pain phenothiazines like perphenazine, thioridazine, chlorpromazine, mesoridazine, fluphenazine, prochlorperazine, promazine, and trifluoperazine scopolamine tramadol trihexyphenidyl What if I miss a dose? If you miss a dose, take it as soon as you can. If it is almost time for your next dose, take only that dose. Do not take double or extra doses. Where should I keep my medicine? Keep out of the reach of children. This medicine can be abused. Keep your medicine in a safe place to protect it from theft. Do not share this medicine with anyone. Selling or giving away this medicine is dangerous and against the law. Store at room temperature between 20 and 25 degrees C (68 and 77 degrees F). Keep container tightly closed. Protect from light. This medicine may cause accidental overdose and if it is taken by other adults, children, or pets. Flush any unused medicine down the toilet to reduce the chance of harm. Do not use the medicine after the expiration date. What should I tell my health care provider before I take this medicine? They need to know if you have any of these conditions: brain tumor Crohn's disease, inflammatory bowel disease, or ulcerative colitis drink more than 3 alcohol containing drinks per day drug abuse or addiction head injury heart or circulation problems kidney disease or problems going to the bathroom liver disease lung disease, asthma, or breathing problems an unusual or allergic reaction to acetaminophen, oxycodone, other opioid analgesics, other medicines, foods, dyes, or preservatives or trying to get breast-feeding What should I watch for while using this medicine? Tell your doctor or health manager [employer] if your pain does not go away, if it gets worse, or if you have new or a different type of pain. You may develop tolerance to the medicine. Tolerance means that you will need a higher dose of the medication for pain relief. Tolerance is normal and is expected if you take this medicine for a long time. Do not suddenly stop taking your medicine because you may develop a severe reaction. Your body becomes used to the medicine. This does NOT mean you are addicted. Addiction is a behavior related to getting and using a drug for a non-medical reason. If you have pain, you have a medical reason to take pain medicine. Your doctor will tell you how much medicine to take. If your doctor wants you to stop the medicine, the dose will be slowly lowered over time to avoid any side effects. You may get drowsy or dizzy. Do not drive, use machinery, or do anything that needs mental alertness until you know how this medicine affects you. Do not stand or sit up quickly, especially if you are an older patient. This reduces the risk of dizzy or fainting spells. Alcohol may interfere with the effect of this medicine. Avoid alcoholic drinks. There are different types of narcotic medicines (opiates) for pain. If you take more than one type at the same time, you may have more side effects. Give your health care provider a list of all medicines you use. Your doctor will tell you how much medicine to take. Do not take more medicine than directed. Call emergency for help if you have problems breathing. The medicine will cause constipation. Try to have a bowel movement at least every 2 to 3 days. If you do not have a bowel movement for 3 days, call your doctor or health manager [employer]. Do not take Tylenol (acetaminophen) or medicines that have acetaminophen with this medicine. Too much acetaminophen can be very dangerous. Many nonprescription medicines contain acetaminophen. Always read the labels carefully to avoid taking more acetaminophen. You have been given the following additional information: Ovarian Cyst Oxycodone Hydrochloride, Acetaminophen Oral tablet Do not work for two days. (Electronically signed by Ethan Quintero MD 01/08/2017 10:08)
== END 2017-01-06 09:28 | disposition home or self-care (01) ==
LOC: ED SRH 03:53
DX: R10.32 Left lower quadrant pain (principal); K92.1 Melena; N83.209 Unspecified ovarian cyst, unspecified side; J44.9 Chronic obstructive pulmonary disease, unspecified; F17.210 Nicotine dependence, cigarettes, uncomplicated; F12.10 Cannabis abuse, uncomplicated
CPT/HCPCS: 90004; 90100; 92235; 92530; 95059